=== PATIENT | female | born 2000 | race Caucasian/White ===

== ENCOUNTER 2020-01-04 16:25 | Emergency (ER) | payer OTHER ==
[~2020-01-04] VITALS: Ht 165.1 cm; Wt 68.0 kg
[2020-01-04 16:29] VITALS: Ht 165.1 cm; Wt 68.0 kg
[2020-01-04 18:02] VITALS: BP 137/70
== END 2020-01-04 18:02 | disposition home or self-care (01) ==
LOC: ED 16:25
DX: H81.10 Benign paroxysmal vertigo, unspecified ear (principal)
CPT/HCPCS: 82962; J8597; Q0162